=== PATIENT | male | born 1930 | race Asian ===

== ENCOUNTER 2016-11-06 09:26 | Emergency (ER) | payer OTHER, MEDICARE ==
[~2016-11-06] VITALS: Ht 162.6 cm; Wt 71.9 kg
[~2016-11-06 09:26] MED LIST: ALBINSX INH; ALBU1AER9 INH; ASPEC81 PO; CHOL100027 PO; CYAN10004 PO; DIGO0.122 PO; DOCU1CAP60 PO; ISOS60TA25 PO; LEVO100T7 PO; MCRK20 PO; NTRSL3 UT; NVLGI PO; NVLGI SC; OXGN; POLY335025 PO; PRLSR20 PO; ROSU40TA PO; TERA1CAP63 PO; TRMCR130WC TOP; WARF-246 PO; WARF5TAB90 PO
[2016-11-06 09:31] VITALS: TEMP 36.5; Ht 162.6 cm; Wt 71.9 kg
[2016-11-06] MEDS ORDERED: OXYMETAZOLINE HCL 0.05% NA SPR 15 ML BTL STA (09:48)
[2016-11-06] MEDS ORDERED: OXYMETAZOLINE HCL 0.05% NA SPR 15 ML BTL ONE (09:50)
--- NOTE | 2016-11-06 09:57 | EMERGENCY ROOM VISIT NOTE ---
History Report prepared by Shelton: Leanna Watkins Under the Supervision of: Dr. Ray Serrato M.D. 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 He is bleeding from the right nares. He denies any trauma or injury to the nose. He states that the bleeding began suddenly this morning. The patient does use 2L of [place] O2 each night, and he does not use a moisturizer. He does take Coumadin and his INR was 2.6 yesterday. The patient denies any recent cold symptoms and any seasonal allergies. He has not been blowing his nose more than usual. Daughter states that he has been sounding "more nasally" over the past two days. The patient states that he feels like there is water in his left ear. He has had nosebleeds in the past and has been cauterized before. 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 Source of History: patient, family (daughter) Onset: 1 hour ELECTROMECHANICAL ASSEMBLY TECHNICIAN Position: nose Quality: other (bleeding) Timing: other (episode) Note: Pt notes left ear congestion. Review of Systems All systems have been listed, reviewed, and are negative other than those previously mentioned. Please see Additional Medical History Sheet. 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 Family History Diabetes mellitus Heart disease Hypertension Social History Smoking Status: Never Smoker Alcohol Use: none Drug Use: none Marital Status: Housing Status: lives with family Occupation Status: retired Current/Historical Medications Scheduled Aspirin (Aspirin Ec), 81 MG PO DAILY Atorvastatin (Lipitor), 40 MG PO DAILY Carvedilol (Coreg), 12.5 MG PO BID Cholecalciferol (Vitamin D), 1,000 UNITS PO DAILY Cyanocobalamin (Vitamin B-12), 1,000 MCG PO DAILY Digoxin (Digoxin), 0.125 MG PO 5XWK Gabapentin (Neurontin), 100 MG PO TID Glimepiride (Amaryl), 2 MG PO DAILY Home O2 Therapy (Oxygen), 2 LITERS NA PRN Hydrocortisone Valerate (Westcort 0.2% Oint), 1 APPLN TOP BID Insulin Aspart (Novolog), 1 DOSE SC SS Insulin Human Regular (Novolin R), 4 UNITS SC QAM Insulin Human Regular (Novolin R), 10 UNITS SC LUNCH Insulin Human Regular (Novolin R), 10 UNITS SC DINNER Levothyroxine Sodium (Levothyroxine Sodium), 1 TAB PO DAILY Lisinopril (Prinivil), 10 MG PO DAILY Multivitamin (Multivitamin), 1 TAB PO DAILY Nitroglycerin (Nitrostat), 0.4 MG UT PRN Omeprazole (Prilosec), 20 MG PO BID Pentoxifylline (Trental), 400 MG PO TID Triamcinolone Acet (Triamcinolone Acetonide), 1 APPLN TOP BID Warfarin Sod (Jantoven), 5 MG PO UD Scheduled PRN Albuterol Sulf (Albuterol Sulfate), 1 VIAL INH Q4 PRN for Wheezing Albuterol Sulfate (Proair Respiclick), 2 PUFFS INH QID PRN for SOB/Wheezing Docusate Sodium (Colace), 1 CAP PO DAILY PRN for Constipation Ipratropium [place] (Atrovent 0.02% Soln), 2.5 ML INH Q4 PRN for SOB/Wheezing Polyethylene Glycol 3350 (Miralax), 17 GM PO DAILY PRN for Constipation Allergies Coded Allergies: Amiodarone (Verified Allergy, Unknown, cough, 02/17/14) Penicillins (Verified Allergy, Unknown, ITCHING, 02/17/14) Quinolones (Verified Allergy, Unknown, 02/17/14) Sulfa Antibiotics (Verified Allergy, Unknown, ., 02/17/14) Tetracycline (Verified Allergy, Unknown, 02/17/14) Physical Exam Vital Signs Date Time Temp Pulse Resp B/P (MAP) Pulse Ox O2 Delivery O2 Flow Rate FiO2 11/06/16 15:02 68 20 177/95 99 11/06/16 11:53 62 20 166/84 95 Room Air 11/06/16 10:18 67 18 177/92 97 Room Air 11/06/16 09:31 36.5 78 17 158/81 98 Room Air Physical Exam GENERAL: Patient awake, alert, oriented x 3. Patient follows commands. Patient does not appear toxic. Patient is adequately hydrated and well- nourished. SKIN: No erythema, pallor, cyanosis or rash HEENT: Normal head, pupils equal, reactive to light and accommodation. Ears normal. Nose: Left nares normal. Right nares: I identified the site of the bleed over Kiesselbach's plexus. Oral cavity and posterior pharynx appear normal. There is a small amount of blood in the posterior pharynx. Neck: Without adenopathy, no neck vein distention. LUNGS: Clear to auscultation. No wheezes, no rales, no rhonchi. HEART: No murmurs. No gallops. No rubs EXTREMITIES: No signs of trauma. No pedal or pretibial edema. No calf or thigh tenderness. NEUROLOGIC: Cranial nerves II-XII within normal limits. No gross motor sensory function deficits. Medical Decision & Procedures Laboratory Results 11/06/16 10:40 11/06/16 10:40 Test 11/06/16 10:40 Red Blood Count 4.12 M/uL (4.7-6.1) Mean Corpuscular Volume 92.2 fL (80-100) Mean Corpuscular Hemoglobin 31.3 pg (25-34) Mean Corpuscular Hemoglobin Concent 33.9 g/dl (32-36) RDW Standard Deviation 44.7 fL (36.4-46.3) RDW Coefficient of Variation 13.4 % (11.5-14.5) Mean Platelet Volume 10.2 fL (7.4-10.4) Prothrombin Time 24.7 SECONDS (9.0-12.0) Prothromb Time International Ratio 2.2 (0.9-1.1) Anion Gap 7.0 mmol/L (3-11) Est Creatinine Clear Calc Drug Dose 43.8 ml/min Estimated GFR () 70.1 Estimated GFR (Non- 60.5 BUN/Creatinine Ratio 18.1 (10-20) Calcium Level 9.2 mg/dl (8.5-10.1) Medications Administered Medications (Trade) Dose Ordered Sig/Louise Route Start Time Stop Time Status Last Admin Dose Admin Oxymetazoline HCl (Afrin 0.05% Nasal [place]) 2 sprays NOW STAT NA 11/06/16 09:48 11/06/16 09:49 DC 11/06/16 09:57 2 SPRAYS Silver Nitrate/ Potassium Nitrate (Silver Nitrate Applicators) 5 pkt STK-MED ONCE .ROUTE 11/06/16 11:14 11/06/16 11:15 DC 11/06/16 11:14 1 PKT Procedure Anterior Nasal Packing Indication: epistaxis Verbal consent obtained. Risks and benefits were explained with the usual customary discussion. A time out was taken. Clots were removed with suction. The right naris was prepped with Afrin and lidocaine. A 5.5-cm nasal balloon was placed in a standard fashion. The patient tolerated this well. Hemostasis was achieved. No complications. ED Course 0936: Past medical records reviewed. The patient was evaluated in room B11B. A complete history and physical examination was performed. 0948: Afrin 2 sprays NA 1109: I reassessed the patient and cauterized a small area in the right nares. 1114: Silver nitrate/potassium nitrate 1236: The patient got up to go to the bathroom and started bleeding again. I reassessed him and cauterized an area adjacent to the previous area. 1319: The patient continued to have bleeding from the right nares. I performed an anterior nasal packing procedure at this time. Please see the procedure note for further details. 1427: I reassessed the patient at this time. He is feeling better and resting comfortably. He has had no further bleeding. I discussed the results and treatment plan with the patient. I answered all pertaining questions that he had. He expressed understanding and verbalized agreement. The patient will be discharged home. Medical Decision Differential diagnoses includes epistaxis, nasal polyp, anemia, coagulopathy. The patient is here with epistaxis from the right nares. Exam reveals a bleeding spot on Kiesselbach's plexus. Despite 2 separate attempts at cauterization the patient continued to have small amounts of bleeding. Therefore, a 5.5 Rhino Rocket was lubricated and then inserted into his right nares. Patient tolerated the procedure well. It was inflated with 5 mL of air. It was secured in place. Patient was encouraged to recheck here in 3 days for removal. The patient was observed for approximately 20 minutes after insertion and there was no further bleeding. Medication Reconciliation: I attest that I have personally reviewed the patient' s current medication list. Blood Pressure Screening: Patient was found to have an elevated blood pressure and was referred to their primary doctor for recheck and further treatment. Impression Primary Impression: Epistaxis Scribe Attestation The scribe's documentation has been prepared under my direction and personally reviewed by me in its entirety. I confirm that the note above accurately reflects all work, treatment, procedures, and medical decision making performed by me. Departure Information Dispostion Home / Self-Care Referrals No Doctor, Assigned (PCP) Forms HOME CARE DOCUMENTATION FORM, IMPORTANT VISIT INFORMATION, WORK / SCHOOL INSTRUCTIONS Patient Instructions My [facility] Additional Instructions Leave the packing in her nose for 3 days. Do not try to remove it. Return here for removal in 3 days. Return here sooner if you have any bleeding around the packing or down the back of your throat. Continue all of your current medications as prescribed. Follow up with your family physician regarding your blood pressure.
[2016-11-06] MEDS ORDERED: PENT400T2 PO (10:41)
[2016-11-06] MEDS ORDERED: WARF5TAB7 PO (10:41)
[2016-11-06] MEDS ORDERED: OXGN (10:41)
[2016-11-06] MEDS ORDERED: ALBINS INH (10:41)
[2016-11-06] MEDS ORDERED: ATOR-24 PO (10:41)
[2016-11-06] MEDS ORDERED: POLY335019 PO (10:41)
[2016-11-06] MEDS ORDERED: LEVO100T7 PO (10:41)
[2016-11-06] MEDS ORDERED: MULT-506 PO (10:41)
[2016-11-06] MEDS ORDERED: ALBU18002 INH (10:41)
[2016-11-06] MEDS ORDERED: CARV25TA2 PO (10:41)
[2016-11-06] MEDS ORDERED: NVLRPUC SC ×3 (10:41)
[2016-11-06] MEDS ORDERED: CYAN10005 PO (10:41)
[2016-11-06] MEDS ORDERED: NVLG SC (10:41)
[2016-11-06] MEDS ORDERED: CHOL100010 PO (10:41)
[2016-11-06] MEDS ORDERED: DOCU-94 PO (10:41)
[2016-11-06] MEDS ORDERED: NTRGSL/4 UT (10:41)
[2016-11-06] MEDS ORDERED: LNX125 PO (10:41)
[2016-11-06] MEDS ORDERED: LISI10TA PO (10:41)
[2016-11-06] MEDS ORDERED: PRLSR20 PO (10:41)
[2016-11-06] MEDS ORDERED: GLIM2TAB PO (10:41)
[2016-11-06] MEDS ORDERED: WSTO TOP (10:41)
[2016-11-06] MEDS ORDERED: GABA-112 PO (10:41)
[2016-11-06] MEDS ORDERED: ATRINSX INH (10:41)
[2016-11-06] MEDS ORDERED: ASPI81TA28 PO (10:41)
[2016-11-06] MEDS ORDERED: TRIA0.5C4 TOP (10:41)
[2016-11-06 10:58] LABS: INR 2.2 (0.9-1.1); PROTHROMBIN TIME (PATIENT) 24.7 SECONDS (9.0-12.0)
[2016-11-06 11:10] LABS: MEAN CELL VOLUME 92.2 fL (80-100); MEAN CORPUSCULAR HEMOGLOBIN 31.3 pg (25-34); MEAN CORPUSCULAR HGB CONC 33.9 g/dl (32-36); MEAN PLATELET VOLUME 10.2 fL (7.4-10.4); PLATELET COUNT 100 K/uL (130-400); RED BLOOD COUNT 4.12 M/uL (4.7-6.1); WHITE BLOOD COUNT 5.37 K/uL (4.8-10.8)
[2016-11-06] MEDS ORDERED: SILVER NITR/POTASSIUM NITRATE 10 APPLICATOR PACK ONE (11:14)
[2016-11-06 11:19] LABS: BUN/CREATININE RATIO 18.1 (10-20); CALCIUM 9.2 mg/dl (8.5-10.1); CREATININE 1.1 mg/dl (0.60-1.40); POTASSIUM 4.1 mmol/L (3.5-5.1)
[2016-11-06 15:02] VITALS: BP 177/95; PULSE 68; O2SAT 99
[2016-12-09] MEDS ORDERED: PSYL0.524 PO (15:28)
[2016-12-09] MEDS ORDERED: PENT400T2 PO (15:30)
[2016-12-09] MEDS ORDERED: GABA-112 PO (15:30)
[2016-12-11] MEDS ORDERED: OXYC-57 PO (12:01)
== END 2016-11-06 15:08 | disposition home or self-care (01) ==
LOC: C.EDB 09:27
DX: R04.0 Epistaxis (principal); Z79.01 Long term (current) use of anticoagulants; Z99.81 Dependence on supplemental oxygen; I35.0 Nonrheumatic aortic (valve) stenosis; I48.91 Unspecified atrial fibrillation; I10 Essential (primary) hypertension; E11.43 Type 2 diabetes mellitus with diabetic autonomic (poly)neuropathy; K21.9 Gastro-esophageal reflux disease without esophagitis; E78.5 Hyperlipidemia, unspecified; E03.9 Hypothyroidism, unspecified; Z95.1 Presence of aortocoronary bypass graft; Z83.3 Family history of diabetes mellitus; Z82.49 Family history of ischemic heart disease and other diseases of the circulatory system; Z79.82 Long term (current) use of aspirin; Z79.899 Other long term (current) drug therapy; Z79.4 Long term (current) use of insulin

== ENCOUNTER 2016-11-08 16:05 | Emergency (ER) | payer OTHER, MEDICARE ==
[~2016-11-08] VITALS: Ht 162.6 cm; Wt 71.4 kg
[~2016-11-08 16:05] MED LIST changes: +ALBINS INH; -ALBINSX INH; +ALBU18002 INH; -ALBU1AER9 INH; -ASPEC81 PO; +ASPI81TA28 PO; +ATOR-24 PO; +ATRINSX INH; +CARV25TA2 PO; +CHOL100010 PO; -CHOL100027 PO; -CYAN10004 PO; +CYAN10005 PO; -DIGO0.122 PO; +DOCU-94 PO; -DOCU1CAP60 PO; +GABA-112 PO; +GLIM2TAB PO; -ISOS60TA25 PO; +LISI10TA PO; +LNX125 PO; -MCRK20 PO; +MULT-506 PO; +NTRGSL/4 UT; -NTRSL3 UT; +NVLG SC; -NVLGI PO; -NVLGI SC; +NVLRPUC SC; +PENT400T2 PO; +POLY335019 PO; -POLY335025 PO; -ROSU40TA PO; -TERA1CAP63 PO; +TRIA0.5C4 TOP; -TRMCR130WC TOP; -WARF-246 PO; +WARF5TAB7 PO; -WARF5TAB90 PO; +WSTO TOP
[2016-11-08 16:12] VITALS: BP 92/58; PULSE 72; TEMP 36.6; O2SAT 99; Ht 162.6 cm; Wt 71.4 kg
--- NOTE | 2016-11-08 17:42 | EMERGENCY ROOM VISIT NOTE ---
History Report prepared by Shelton: Phoebe Hooper Under the Supervision of: Dr. Ray Serrato M.D. First contact with patient: 16:23 Chief Complaint: NOSE BLEED (MINOR) Stated Complaint: NOSE BLEED History of Present Illness The patient is an 85 year old male who presents to the Emergency Room with complaints of an episode of epistaxis starting PETROLOGIST. The patient was seen in the ED 2 days ago for nosebleed. He had a 5.5 rhino rocket placed at that time. He had some pink dripping from his nose today which concerned him. He did not move the rhino rocket. He is on Coumadin for A fib and aortic valve stenosis. He has recently been feeling more tired. He was feeling well 2 days ago during his first visit, but since then he has been tired and having some leg pain. He has some head discomfort since the rhino rocket was placed. Source of History: patient Onset: PETROLOGIST Position: nose Quality: other (epistaxis) Timing: other (episodic) Associated Symptoms: + fatigue Note: Pt reports pink mucous drip, leg pain. Review of Systems All systems have been listed, reviewed, and are negative other than those previously mentioned. Please see Additional Medical History Sheet. 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 Family History Diabetes mellitus Heart disease Hypertension Social History Smoking Status: Never Smoker Alcohol Use: none Drug Use: none Marital Status: Housing Status: lives with family Occupation Status: retired Current/Historical Medications Scheduled Aspirin (Aspirin Ec), 81 MG PO DAILY Atorvastatin (Lipitor), 40 MG PO DAILY Carvedilol (Coreg), 12.5 MG PO BID Cholecalciferol (Vitamin D), 1,000 UNITS PO DAILY Cyanocobalamin (Vitamin B-12), 1,000 MCG PO DAILY Digoxin (Digoxin), 0.125 MG PO 5XWK Gabapentin (Neurontin), 100 MG PO TID Glimepiride (Amaryl), 2 MG PO DAILY Home O2 Therapy (Oxygen), 2 LITERS NA PRN Hydrocortisone Valerate (Westcort 0.2% Oint), 1 APPLN TOP BID Insulin Aspart (Novolog), 1 DOSE SC SS Insulin Human Regular (Novolin R), 4 UNITS SC QAM Insulin Human Regular (Novolin R), 10 UNITS SC LUNCH Insulin Human Regular (Novolin R), 10 UNITS SC DINNER Levothyroxine Sodium (Levothyroxine Sodium), 1 TAB PO DAILY Lisinopril (Prinivil), 10 MG PO DAILY Multivitamin (Multivitamin), 1 TAB PO DAILY Nitroglycerin (Nitrostat), 0.4 MG UT PRN Omeprazole (Prilosec), 20 MG PO BID Pentoxifylline (Trental), 400 MG PO TID Triamcinolone Acet (Triamcinolone Acetonide), 1 APPLN TOP BID Warfarin Sod (Jantoven), 5 MG PO UD Scheduled PRN Albuterol Sulf (Albuterol Sulfate), 1 VIAL INH Q4 PRN for Wheezing Albuterol Sulfate (Proair Respiclick), 2 PUFFS INH QID PRN for SOB/Wheezing Docusate Sodium (Colace), 1 CAP PO DAILY PRN for Constipation Ipratropium [place] (Atrovent 0.02% Soln), 2.5 ML INH Q4 PRN for SOB/Wheezing Polyethylene Glycol 3350 (Miralax), 17 GM PO DAILY PRN for Constipation Allergies Coded Allergies: Amiodarone (Verified Allergy, Unknown, cough, 02/17/14) Penicillins (Verified Allergy, Unknown, ITCHING, 02/17/14) Quinolones (Verified Allergy, Unknown, 02/17/14) Sulfa Antibiotics (Verified Allergy, Unknown, ., 02/17/14) Tetracycline (Verified Allergy, Unknown, 02/17/14) Physical Exam Vital Signs Date Time Temp Pulse Resp B/P (MAP) Pulse Ox O2 Delivery O2 Flow Rate FiO2 11/08/16 16:12 36.6 72 18 92/58 99 Room Air Physical Exam GENERAL: Patient awake, alert, oriented x 3. Patient follows commands. Patient does not appear toxic. Patient is adequately hydrated and well- nourished. SKIN: No erythema, pallor, cyanosis or rash HEENT: Normal head, pupils equal, reactive to light and accommodation. Ears normal. Patient has rhino rocket in the right nares, small amount of dry blood at the entrance to the right nares, no active bleeding, no blood in the left nares, no blood in the posterior oropharynx. Oral cavity and posterior pharynx appear normal. Neck: Without adenopathy, no neck vein distention. Medical Decision & Procedures Laboratory Results 11/08/16 16:50 Test 11/08/16 16:50 Red Blood Count 4.40 M/uL (4.7-6.1) Mean Corpuscular Volume 93.0 fL (80-100) Mean Corpuscular Hemoglobin 30.7 pg (25-34) Mean Corpuscular Hemoglobin Concent 33.0 g/dl (32-36) RDW Standard Deviation 46.2 fL (36.4-46.3) RDW Coefficient of Variation 13.5 % (11.5-14.5) Mean Platelet Volume 11.0 fL (7.4-10.4) Prothrombin Time 28.4 SECONDS (9.0-12.0) Prothromb Time International Ratio 2.6 (0.9-1.1) Laboratory results as stated above per my review. ED Course 1623: Past medical records reviewed. The patient was evaluated in room D4B. A complete history and physical examination was performed. 1804: Upon reevaluation, the patient appeared to have improvement of his symptoms. I discussed today's findings with him. He verbalized agreement of the treatment plan. We have arranged follow up on November 10 in the morning. He was discharged home. Medical Decision Nurses notes reviewed. Medical history sheet reviewed. Differential diagnosis includes but is not limited to: epistaxis, coagulopathy. Medication Reconciliation: I attest that I have personally reviewed the patient' s current medication list. Blood pressure Screening: Patient was found to have normal blood pressure on screening and does not require follow up. Patient is here complaining of some blood tinged mucus draining from his nose. On examination there is no active bleeding. There is no blood in the posterior pharynx and there is no blood from either nares. I believe the discharge is mucus only. INR is currently 2.6. Hemoglobin is 13.5. We will take him off of warfarin for 2 days. He will return to have the tampon removed on 11/10. I explained the risks of taking him off Coumadin. Impression Primary Impression: Anterior epistaxis Scribe Attestation The scribe's documentation has been prepared under my direction and personally reviewed by me in its entirety. I confirm that the note above accurately reflects all work, treatment, procedures, and medical decision making performed by me. Departure Information Dispostion Home / Self-Care Referrals Yusra Melissa M.D. (PCP) Patient Instructions My [facility] Additional Instructions Do not take Coumadin tonight or tomorrow night. Return here November 10.
[2016-11-08 17:44] LABS: HEMATOCRIT 40.9 % (42-52); MEAN CORPUSCULAR HEMOGLOBIN 30.7 pg (25-34); PLATELET COUNT 109 K/uL (130-400)
[2016-11-08 17:51] LABS: INR 2.6 (0.9-1.1); PROTHROMBIN TIME (PATIENT) 28.4 SECONDS (9.0-12.0)
[2016-12-09] MEDS ORDERED: PSYL0.524 PO (15:28)
[2016-12-09] MEDS ORDERED: GABA-112 PO (15:30)
[2016-12-09] MEDS ORDERED: PENT400T2 PO (15:30)
[2016-12-11] MEDS ORDERED: OXYC-57 PO (12:01)
== END 2016-11-08 18:22 | disposition home or self-care (01) ==
LOC: C.EDB 16:06 → C.EDD 18:22
DX: R04.0 Epistaxis (principal); I48.91 Unspecified atrial fibrillation; E11.42 Type 2 diabetes mellitus with diabetic polyneuropathy; E78.5 Hyperlipidemia, unspecified; E03.9 Hypothyroidism, unspecified; I10 Essential (primary) hypertension; K21.9 Gastro-esophageal reflux disease without esophagitis; I35.0 Nonrheumatic aortic (valve) stenosis; Z79.4 Long term (current) use of insulin; Z79.82 Long term (current) use of aspirin; Z79.01 Long term (current) use of anticoagulants; Z79.899 Other long term (current) drug therapy; Z88.0 Allergy status to penicillin; Z88.2 Allergy status to sulfonamides; Z88.8 Allergy status to other drugs, medicaments and biological substances; Z83.3 Family history of diabetes mellitus; Z82.49 Family history of ischemic heart disease and other diseases of the circulatory system

== ENCOUNTER 2016-11-10 06:35 | Emergency (ER) | payer OTHER, MEDICARE ==
[~2016-11-10] VITALS: Ht 162.6 cm; Wt 71.1 kg
[2016-11-10 06:42] VITALS: Ht 162.6 cm; Wt 71.1 kg
--- NOTE | 2016-11-10 07:40 | EMERGENCY ROOM VISIT NOTE ---
History Report prepared by [place]: Padmini Keller Under the Supervision of: Dr. Ray Serrato M.D. First contact with patient: 06:58 Chief Complaint: NOSE BLEED (MINOR) Stated Complaint: TOLD TO RETURN BY DR BRANDO CHAUDHARI History of Present Illness The patient is an 85 year old male who presents to the Emergency Room for a rhino rocket removal. The patient experienced an episode of epistaxis 4 days ago and had a rhino rocket placed in his right nares in the ED at that time. He was evaluated in the ED again 2 days ago for blood-tinged drainage from his right nares. He states that he is still experiencing some blood-tinged drainage. The patient's Coumadin was stopped 2 days ago and he states that he has not taken it since then. Source of History: patient Onset: 4 days ago Position: nose (right nares) Quality: other (rhino rocket removal) Timing: constant Note: blood-tinged drainage Review of Systems All systems have been listed, reviewed, and are negative other than those previously mentioned. Please see Additional Medical History Sheet. 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 Family History Diabetes mellitus Heart disease Hypertension Social History Smoking Status: Never Smoker Alcohol Use: none Drug Use: none Marital Status: Housing Status: lives with family Occupation Status: retired Current/Historical Medications Scheduled Aspirin (Aspirin Ec), 81 MG PO DAILY Atorvastatin (Lipitor), 40 MG PO DAILY Carvedilol (Coreg), 12.5 MG PO BID Cholecalciferol (Vitamin D), 1,000 UNITS PO DAILY Cyanocobalamin (Vitamin B-12), 1,000 MCG PO DAILY Digoxin (Digoxin), 0.125 MG PO 5XWK Gabapentin (Neurontin), 100 MG PO TID Glimepiride (Amaryl), 2 MG PO DAILY Home O2 Therapy (Oxygen), 2 LITERS NA PRN Hydrocortisone Valerate (Westcort 0.2% Oint), 1 APPLN TOP BID Insulin Aspart (Novolog), 1 DOSE SC SS Insulin Human Regular (Novolin R), 4 UNITS SC QAM Insulin Human Regular (Novolin R), 10 UNITS SC LUNCH Insulin Human Regular (Novolin R), 10 UNITS SC DINNER Levothyroxine Sodium (Levothyroxine Sodium), 1 TAB PO DAILY Lisinopril (Prinivil), 10 MG PO DAILY Multivitamin (Multivitamin), 1 TAB PO DAILY Nitroglycerin (Nitrostat), 0.4 MG UT PRN Omeprazole (Prilosec), 20 MG PO BID Pentoxifylline (Trental), 400 MG PO TID Triamcinolone Acet (Triamcinolone Acetonide), 1 APPLN TOP BID Warfarin Sod (Jantoven), 5 MG PO UD Scheduled PRN Albuterol Sulf (Albuterol Sulfate), 1 VIAL INH Q4 PRN for Wheezing Albuterol Sulfate (Proair Respiclick), 2 PUFFS INH QID PRN for SOB/Wheezing Docusate Sodium (Colace), 1 CAP PO DAILY PRN for Constipation Ipratropium [place] (Atrovent 0.02% Soln), 2.5 ML INH Q4 PRN for SOB/Wheezing Polyethylene Glycol 3350 (Miralax), 17 GM PO DAILY PRN for Constipation Allergies Coded Allergies: Amiodarone (Verified Allergy, Unknown, cough, 11/10/16) Penicillins (Verified Allergy, Unknown, ITCHING, 11/10/16) Quinolones (Verified Allergy, Unknown, 11/10/16) Sulfa Antibiotics (Verified Allergy, Unknown, ., 11/10/16) Tetracycline (Verified Allergy, Unknown, 11/10/16) Physical Exam Vital Signs Date Time Temp Pulse Resp B/P (MAP) Pulse Ox O2 Delivery O2 Flow Rate FiO2 11/10/16 13:30 36.4 66 20 108/70 (83) 98 Room Air 11/10/16 13:30 36.4 68 20 119/66 97 Room Air 11/10/16 13:21 36.2 68 20 115/68 (88) 97 Room Air 11/10/16 13:14 123/66 11/10/16 13:13 70 23 94 11/10/16 13:13 70 23 11/10/16 13:08 70 17 96 11/10/16 13:08 70 17 11/10/16 13:07 134/74 11/10/16 13:03 69 20 97 11/10/16 13:03 36.2 70 18 134/74 98 Room Air 11/10/16 13:03 69 20 11/10/16 10:02 60 16 117/59 98 11/10/16 08:45 71 17 128/67 97 11/10/16 06:42 36.5 81 18 107/66 98 Room Air Physical Exam GENERAL: Patient awake, alert, oriented x 3. Patient follows commands. Patient does not appear toxic. Patient is adequately hydrated and well- nourished. SKIN: No erythema, pallor, cyanosis or rash HEENT: Normal head, pupils equal, reactive to light and accommodation. Ears normal. Inflated rhino rocket in right nares without bleeding anteriorly or in the posterior oropharynx. Oral cavity and posterior pharynx appear normal. Neck : Without adenopathy, no neck vein distention. NEUROLOGIC: Cranial nerves II-XII within normal limits. No gross motor sensory function deficits. Medical Decision & Procedures Laboratory Results Test 11/10/16 13:19 Bedside Glucose 164 mg/dl (70-99) Medications Administered Medications (Trade) Dose Ordered Sig/Louise Route Start Time Stop Time Status Last Admin Dose Admin Oxymetazoline HCl (Afrin 0.05% Nasal [place]) 75 sprays STK-MED ONCE .ROUTE 11/10/16 07:44 11/10/16 07:45 DC 11/10/16 07:44 75 SPRAYS Gelatin (Surgifoam Sponge 100 (LARGE)) 1 ea STK-MED ONCE .ROUTE 11/10/16 10:51 11/10/16 10:52 DC 11/10/16 10:51 1 EA Tetracaine HCl (Tetracaine 4% Soln) 10 ml ONE ONCE TOP 11/10/16 12:15 11/10/16 12:16 DC 11/10/16 12:52 5 ML Miscellaneous (Surgicel Fibrillar Hemostat 1 X 2in) 1 ea ONE ONCE TOP 11/10/16 12:42 11/10/16 12:43 DC 11/10/16 12:42 1 EA Gelatin (Surgifoam Sponge 100 (LARGE)) 1 ea ONE ONCE TOP 11/10/16 12:44 11/10/16 12:45 DC 11/10/16 12:44 1 EA Procedure Anterior Nasal Packing Removal Packing rinsed with a mixture of saline and peroxide then deflated. The packing was gently removed. Re-examination following removal revealed erythema and slight irritation, but no active bleeding. ED Course 0659: Past medical records reviewed. The patient was evaluated in room A2. A complete history and physical examination was performed. The patient's anterior nasal packing was removed at this time. Please refer to the procedure note above for further details. 0729: Upon reevaluation, the patient appeared to have improvement of his symptoms. He is not experiencing any bleeding in his right nares on re- examination. I discussed today's findings with him. He verbalized agreement of the treatment plan. He was discharged home. 0746: The patient's nurse informed me that as the patient was being discharged, he began to experience epistaxis again. 0750: I reassessed the patient. He is not experiencing any active bleeding at this time. 0821: The patient experienced some bleeding after ambulating to the bathroom. 0845: I reassessed the patient and used HemaDerm topical hemostat. 0930: I reevaluated the patient. He is not currently bleeding. 1006: The patient is still not experiencing any bleeding. I am going to have the nurse ambulate the patient to see if he experiences any bleeding with that. 1014: The nurse informed me that the patient ambulated around the nursing station without any bleeding, but upon coming out of the bathroom he complained of some blood dripping from his right nares. 1029: Discussed the patient's case with Dr. Torres - ENT. He is going to come in to evaluate the patient. 1157: I went to reassess the patient, but the nurses informed me that Dr. Torres has evaluated the patient and taken him to the operating room. Medical Decision Nurses notes reviewed. Medical history sheet reviewed. Differential diagnosis includes but is not limited to: epistaxis. The patient was seen approximately 4 days ago with epistaxis. Cautery was unsuccessful and an Rhino rocket was inserted. He was checked yesterday for some pink tinged drainage. Coumadin was stopped. Today he returned and the tampon was gently removed. Bleeding was intermittent since. Despite multiple exams I could not identify the bleeding source. Afrin was used without resolution of the bleeding. HemaDerm was also used without resolution. I discussed care with Dr. Torres who evaluated the patient in the ED and took him to the OR. Medication Reconciliation: I attest that I have personally reviewed the patient' s current medication list. Blood pressure Screening: Patient was found to have normal blood pressure on screening and does not require follow up. Consults Time Called: 1020 Consulting Physician: Dr. Brian HADDAD Returned Call: 1029 Discussed the patient's case with Dr. Brian HADDAD. He is going to come in to evaluate the patient. Impression Primary Impression: Epistaxis Scribe Attestation The scribe's documentation has been prepared under my direction and personally reviewed by me in its entirety. I confirm that the note above accurately reflects all work, treatment, procedures, and medical decision making performed by me. Departure Information Dispostion Other (Being Evaluated By Dr. Brian HADDAD) Referrals Yusra Melissa M.D. (PCP) Patient Instructions My [facility]
[2016-11-10] MEDS ORDERED: OXYMETAZOLINE HCL 0.05% NA SPR 15 ML BTL ONE (07:44)
[2016-11-10 10:02] VITALS: O2SAT 98
[2016-11-10] MEDS ORDERED: GELATIN SPONGE SZ 100 ONE (10:51)
[2016-11-10] MEDS ORDERED: GELATIN SPONGE 12-7MM ONE (11:06)
[2016-11-10] MEDS ORDERED: FENTANYL CITRATE INJ 50 MCG/1 ML 2 ML VIAL IV PRN (11:15)
[2016-11-10] MEDS ORDERED: ONDANSETRON INJ 2 MG/ML 2 ML VIAL IV PRN (11:15)
[2016-11-10] MEDS ORDERED: ATROPINE SULFATE 0.1 MG/ML 5ML SYR IV PRN (11:15)
--- NOTE | 2016-11-10 11:39 | History and Physical ---
History & Physical Date Nov 10, 2016. 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 Additional History Hepatic Disease: Yes Endocrine Disorder: Yes Kidney Disease: No Hypertension: Yes Heart Disease: Yes Bleeding Tendencies: Yes Infectious Diseases: No Allergies Coded Allergies: Amiodarone (Verified Allergy, Unknown, cough, 11/10/16) Penicillins (Verified Allergy, Unknown, ITCHING, 11/10/16) Quinolones (Verified Allergy, Unknown, 11/10/16) Sulfa Antibiotics (Verified Allergy, Unknown, ., 11/10/16) Tetracycline (Verified Allergy, Unknown, 11/10/16) Home Medications Scheduled Aspirin (Aspirin Ec), 81 MG PO DAILY Atorvastatin (Lipitor), 40 MG PO DAILY Carvedilol (Coreg), 12.5 MG PO BID Cholecalciferol (Vitamin D), 1,000 UNITS PO DAILY Cyanocobalamin (Vitamin B-12), 1,000 MCG PO DAILY Digoxin (Digoxin), 0.125 MG PO 5XWK Gabapentin (Neurontin), 100 MG PO TID Glimepiride (Amaryl), 2 MG PO DAILY Home O2 Therapy (Oxygen), 2 LITERS NA PRN Hydrocortisone Valerate (Westcort 0.2% Oint), 1 APPLN TOP BID Insulin Aspart (Novolog), 1 DOSE SC SS Insulin Human Regular (Novolin R), 4 UNITS SC QAM Insulin Human Regular (Novolin R), 10 UNITS SC LUNCH Insulin Human Regular (Novolin R), 10 UNITS SC DINNER Levothyroxine Sodium (Levothyroxine Sodium), 1 TAB PO DAILY Lisinopril (Prinivil), 10 MG PO DAILY Multivitamin (Multivitamin), 1 TAB PO DAILY Nitroglycerin (Nitrostat), 0.4 MG UT PRN Omeprazole (Prilosec), 20 MG PO BID Pentoxifylline (Trental), 400 MG PO TID Triamcinolone Acet (Triamcinolone Acetonide), 1 APPLN TOP BID Warfarin Sod (Jantoven), 5 MG PO UD Scheduled PRN Albuterol Sulf (Albuterol Sulfate), 1 VIAL INH Q4 PRN for Wheezing Albuterol Sulfate (Proair Respiclick), 2 PUFFS INH QID PRN for SOB/Wheezing Docusate Sodium (Colace), 1 CAP PO DAILY PRN for Constipation Ipratropium [place] (Atrovent 0.02% Soln), 2.5 ML INH Q4 PRN for SOB/Wheezing Polyethylene Glycol 3350 (Miralax), 17 GM PO DAILY PRN for Constipation Physical Examination Skin: warm/dry Eyes: normal inspection ENT: + pertinent finding (blood) Head: normocephalic Neck: supple Respiratory/Chest: lungs clear Cardiovascular: regular rate, rhythm, no edema, no murmur Abdomen / GI: normal bowel sounds, non tender Back: normal inspection Extremities: normal inspection Neurologic/Psych: no motor/sensory deficits Diagnosis posterior epistaxis ASA Classification: ASA Class II Plan of Treatment posterior epistaxis
[2016-11-10] MEDS ORDERED: MIDAZOLAM HCL 1 MG/ML 2ML VIAL ONE (11:59)
[2016-11-10] MEDS ORDERED: LIDO 2%/EPINEPHRINE 1:100000 20 ML VIAL INFIL ONE (12:08)
[2016-11-10] MEDS ORDERED: TETRACAINE 4% SOLN TOP ONE (12:15)
[2016-11-10] MEDS ORDERED: SURGICEL FIBRILLAR HEMOSTAT 1 X 2IN TOP ONE (12:42)
[2016-11-10] MEDS ORDERED: GELATIN SPONGE SZ 100 TOP ONE (12:44)
--- NOTE | 2016-11-10 13:18 | [facility] Operative Report ---
Operative Report Operative Date Nov 10, 2016. Pre-Operative Diagnosis Posterior epistaxis Post-Operative Diagnosis same Procedure(s) Performed endoscopic cautery and posterior packing right Surgeon Dr. Torres Cold Reduction Roller Surgeon(s) none Estimated Blood Loss 5 ml Findings septal dev. to right with erosion Specimens none Anesthesia MAC Complication(s) None Disposition Recovery Room / PACU Indications epistaxis x3 to ER Description of Procedure I used topical tetracaine. Dr. Morrow sedated him. I use suction cautery to control bleeding right mid and posterior septum and right inferior turbinate, then packed with gelfoam and fibrillar with good control. I attest to the content of the Intraoperative Record and any orders documented therein. Any exceptions are noted below.
--- NOTE | 2016-11-10 13:22 | Discharge Instructions ---
Discharge Instructions Date of Service Nov 10, 2016. Admission Reason for Admission: Told To Return By Dr Ama Pederson Discharge Discharge Diagnosis / Problem: epistaxis Discharge Goals Goal(s): Therapeutic intervention Activity Recommendations Activity Limitations: per Instructions/Follow-up section . Instructions / Follow-Up Instructions / Follow-Up ACTIVITY RECOMMENDATIONS: * Being up and around is good, but no strenuous activity, heavy lifting or physical exertion for one week. * Keep your head elevated 30 degrees when lying down or sleeping. * Do not blow your nose for 48 hours, sniff back instead. * Avoid hot showers. OVER THE COUNTER MEDICATIONS: * You may use Tylenol * Avoid aspirin or aspirin containing products, e.g. as they may increase bleeding. Hold coumadin until tomorrow, call Dr. Torres tomorrow if any bleeding to discuss coumadin SPECIAL CARE INSTRUCTIONS: * Expect to have bloody drainage from your nose and/or down your throat for one to three days. Change drip pad as needed. * Begin irrigating your nose with saline solution when packing starts to dissolve, at least six to ten times per day and sniff back to help remove old clots or crust. * You may experience nasal and facial congestion, pain and pressure, this is normal. * Please call with any significant and/or progressive pain, redness, swelling around the eyes, visual changes, fever of 101.5 degrees F, active bleeding or any problems or concerns. * If active bleeding occurs, spray the nose three times at one minute intervals with Afrin spray and call or cell phone: . If unable to reach the doctor, go to the nearest Emergency Department. Special Diet: * Avoid extremely hot fluids. FOLLOW UP VISIT: Follow-up Visit with Dr. Torres If not already scheduled, please call to schedule. Current Hospital Diet Patient's current hospital diet: Discharge Diet Recommended Diet: Regular Diet, Diabetes Type 1 Diet Procedures Procedures Performed: Endoscopic Cautery and Posterior packing right nares epistaxis Pending Studies Studies pending at discharge: no Medical Emergencies . Who to Call and When: Medical Emergencies: If at any time you feel your situation is an emergency, please call [phone] immediately. . Non-Emergent Contact Non-Emergency issues call your: Primary Care Provider . "Provider Documentation" section prepared by Akosua Torres. . VTE Core Measure Inpt VTE Proph given/why not?: Warfarin (Coumadin) [place] Drug Monitoring Program Search Results: no issues identified
--- NOTE | 2016-11-10 13:22 | Anesthesiology Progress Note ---
Anesthesia Post Op Note Date & Time Nov 10, 2016 at 13:22 Vital Signs Pain Intensity: 0 Vital Signs Past 12 Hours Date Time Temp Pulse Resp B/P (MAP) Pulse Ox O2 Delivery O2 Flow Rate FiO2 11/10/16 13:14 123/66 11/10/16 13:13 70 23 94 11/10/16 13:13 70 23 11/10/16 13:08 70 17 96 11/10/16 13:08 70 17 11/10/16 13:07 134/74 11/10/16 13:03 69 20 97 11/10/16 13:03 36.2 70 18 134/74 98 Room Air 11/10/16 13:03 69 20 11/10/16 10:02 60 16 117/59 98 11/10/16 08:45 71 17 128/67 97 11/10/16 06:42 36.5 81 18 107/66 98 Room Air Notes Mental Status: alert / awake / arousable, participated in evaluation Pt Amnestic to Procedure: Yes Nausea / Vomiting: adequately controlled Pain: adequately controlled Airway Patency, RR, SpO2: stable & adequate BP & HR: stable & adequate Hydration State: stable & adequate Anesthetic Complications: no major complications apparent
[2016-11-10 13:30] VITALS: BP_SYST 108; BP_SYST 119; BP_DIAS 66; BP_DIAS 70; PULSE 66; PULSE 68; TEMP 36.4; O2SAT 97; O2SAT 98
[2016-12-09] MEDS ORDERED: PSYL0.524 PO (15:28)
[2016-12-09] MEDS ORDERED: PENT400T2 PO (15:30)
[2016-12-09] MEDS ORDERED: GABA-112 PO (15:30)
[2016-12-11] MEDS ORDERED: OXYC-57 PO (12:01)
== END 2016-11-10 11:55 | disposition home or self-care (01) ==
LOC: C.EDB 06:37 → C.EDA 11:55
DX: R04.0 Epistaxis (principal); I71.4 Abdominal aortic aneurysm, without rupture; I35.0 Nonrheumatic aortic (valve) stenosis; E11.40 Type 2 diabetes mellitus with diabetic neuropathy, unspecified; K21.9 Gastro-esophageal reflux disease without esophagitis; E03.9 Hypothyroidism, unspecified; E78.5 Hyperlipidemia, unspecified; Z79.82 Long term (current) use of aspirin; Z79.4 Long term (current) use of insulin; Z79.01 Long term (current) use of anticoagulants; Z83.3 Family history of diabetes mellitus; Z82.49 Family history of ischemic heart disease and other diseases of the circulatory system

== ENCOUNTER 2016-12-11 08:03 | Day surgery (SDC) | payer OTHER, MEDICARE ==
[2016-12-09 15:34] VITALS: BMI 26.0
--- NOTE | 2016-12-09 16:21 | PAT Medication Instructions ---
Service Date Dec 09, 2016. Current Home Medication List Albuterol Sulf (Albuterol Sulfate), 1 VIAL INH Q4 PRN for Wheezing Albuterol Sulfate (Proair Respiclick), 2 PUFFS INH QID PRN for SOB/Wheezing Aspirin (Aspirin Ec), 81 MG PO QAM Atorvastatin (Lipitor), 40 MG PO QAM Carvedilol (Coreg), 12.5 MG PO BID Cholecalciferol (Vitamin D), 1,000 UNITS PO DAILY Cyanocobalamin (Vitamin B-12), 1,000 MCG PO QPM Digoxin (Digoxin), 0.125 MG PO 5XWK Docusate Sodium (Colace), 1-2 CAP PO QPM Gabapentin (Neurontin), 100 MG PO TID Glimepiride (Amaryl), 2 MG PO DAILY Home O2 Therapy (Oxygen), 2 LITERS NA PRN Hydrocortisone Valerate (Westcort 0.2% Oint), 1 APPLN TOP BID PRN for rash Insulin Aspart (Novolog), 1 DOSE SC SS Ipratropium [place] (Atrovent 0.02% Soln), 2.5 ML INH Q4 PRN for SOB/Wheezing Levothyroxine Sodium (Levothyroxine Sodium), 1 TAB PO QAM Lisinopril (Prinivil), 10 MG PO QAM Multivitamin (Multivitamin), 1 TAB PO QAM Nitroglycerin (Nitrostat), 0.4 MG UT PRN Omeprazole (Prilosec), 20 MG PO BID Pentoxifylline (Trental), 400 MG PO TID Pentoxifylline (Trental), 400 MG PO TID Psyllium (Metamucil), Unknown Dose PO UD PRN for Constipation Triamcinolone Acet (Triamcinolone Acetonide), 1 APPLN TOP BID PRN for RASH Warfarin Sod (Jantoven), 2.5 MG PO QPM Medication Instructions For Your Scheduled Surgery - Check with surgeon/element winding machine tender for instructions: Warfarin Sod (Jantoven), 2.5 MG PO QPM Aspirin (Aspirin Ec), 81 MG PO QAM Pentoxifylline (Trental), 400 MG PO TID Pentoxifylline (Trental), 400 MG PO TID - Hold the following medications 24 hours prior to surgery: Triamcinolone Acet (Triamcinolone Acetonide), 1 APPLN TOP BID PRN for RASH Hydrocortisone Valerate (Westcort 0.2% Oint), 1 APPLN TOP BID PRN for rash - Hold the following medications the morning of surgery: Psyllium (Metamucil), Unknown Dose PO UD PRN for Constipation Multivitamin (Multivitamin), 1 TAB PO QAM Lisinopril (Prinivil), 10 MG PO QAM Glimepiride (Amaryl), 2 MG PO DAILY Cholecalciferol (Vitamin D), 1,000 UNITS PO DAILY Insulin Aspart (Novolog), 1 DOSE SC SS - Take the following medications the morning of surgery with a sip of water: Omeprazole (Prilosec), 20 MG PO BID Levothyroxine Sodium (Levothyroxine Sodium), 1 TAB PO QAM Ipratropium [place] (Atrovent 0.02% Soln), 2.5 ML INH Q4 PRN for SOB/Wheezing ( if needed) Gabapentin (Neurontin), 100 MG PO TID Digoxin (Digoxin), 0.125 MG PO 5XWK Carvedilol (Coreg), 12.5 MG PO BID Atorvastatin (Lipitor), 40 MG PO QAM Albuterol Sulf (Albuterol Sulfate), 1 VIAL INH Q4 PRN for Wheezing (if needed) Albuterol Sulfate (Proair Respiclick), 2 PUFFS INH QID PRN for SOB/Wheezing (if needed) Nitroglycerin (Nitrostat), 0.4 MG UT PRN - Take the following medications as scheduled the night before surgery: Psyllium (Metamucil), Unknown Dose PO UD PRN for Constipation (if needed) Omeprazole (Prilosec), 20 MG PO BID Ipratropium [place] (Atrovent 0.02% Soln), 2.5 ML INH Q4 PRN for SOB/Wheezing ( if needed) Home O2 Therapy (Oxygen), 2 LITERS NA PRN (if needed) Gabapentin (Neurontin), 100 MG PO TID Docusate Sodium (Colace), 1-2 CAP PO QPM Cyanocobalamin (Vitamin B-12), 1,000 MCG PO QPM Carvedilol (Coreg), 12.5 MG PO BID Albuterol Sulf (Albuterol Sulfate), 1 VIAL INH Q4 PRN for Wheezing (if needed) Albuterol Sulfate (Proair Respiclick), 2 PUFFS INH QID PRN for SOB/Wheezing (if needed) Insulin Aspart (Novolog), 1 DOSE SC SS If you have any questions please call us at [phone] or [phone] or [phone]
[2016-12-09 16:35] LABS: BASO % 0.9 %; BASO ABS # 0.06 K/uL (0-0.2); COMPLETE YES; IG% 0.4 %; LYMPH % 20.6 %; LYMPH ABS # 1.38 K/uL (1.2-3.4); MEAN CELL VOLUME 90.3 fL (80-100); MEAN CORPUSCULAR HEMOGLOBIN 30.2 pg (25-34); MEAN CORPUSCULAR HGB CONC 33.4 g/dl (32-36); MONO % 9.1 %; PLATELET COUNT 122 K/uL (130-400); RED BLOOD COUNT 4.21 M/uL (4.7-6.1); WHITE BLOOD COUNT 6.71 K/uL (4.8-10.8)
--- NOTE | 2016-12-10 08:07 | History and Physical ---
History & Physical Date Dec 10, 2016. Chief Complaint nose bleeds History of Present Illness The patient is a 85 year old male with complaints of persistent epistaxis, s/p endo cautery, INR 3.3 Wednesday, septal dev. 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 PT NOT SURE, 12/09/16) Doxycycline (Verified Allergy, Unknown, GI UPSET, 12/09/16) Penicillins (Verified Allergy, Unknown, ITCHING, 11/10/16) Quinolones (Verified Allergy, Unknown, ? - pt not sure, 12/09/16) Sulfa Antibiotics (Verified Allergy, Unknown, ? pt not sure, 12/09/16) Tetracycline (Verified Allergy, Unknown, ? pt not sure, 12/09/16) Home Medications Scheduled Aspirin (Aspirin Ec), 81 MG PO QAM Atorvastatin (Lipitor), 40 MG PO QAM Carvedilol (Coreg), 12.5 MG PO BID Cholecalciferol (Vitamin D), 1,000 UNITS PO DAILY Cyanocobalamin (Vitamin B-12), 1,000 MCG PO QPM Digoxin (Digoxin), 0.125 MG PO 5XWK Docusate Sodium (Colace), 1-2 CAP PO QPM Gabapentin (Neurontin), 100 MG PO TID Glimepiride (Amaryl), 2 MG PO DAILY Home O2 Therapy (Oxygen), 2 LITERS NA PRN Insulin Aspart (Novolog), 1 DOSE SC SS Levothyroxine Sodium (Levothyroxine Sodium), 1 TAB PO QAM Lisinopril (Prinivil), 10 MG PO QAM Multivitamin (Multivitamin), 1 TAB PO QAM Nitroglycerin (Nitrostat), 0.4 MG UT PRN Omeprazole (Prilosec), 20 MG PO BID Pentoxifylline (Trental), 400 MG PO TID Pentoxifylline (Trental), 400 MG PO TID Warfarin Sod (Jantoven), 2.5 MG PO QPM Scheduled PRN Albuterol Sulf (Albuterol Sulfate), 1 VIAL INH Q4 PRN for Wheezing Albuterol Sulfate (Proair Respiclick), 2 PUFFS INH QID PRN for SOB/Wheezing Hydrocortisone Valerate (Westcort 0.2% Oint), 1 APPLN TOP BID PRN for rash Ipratropium [place] (Atrovent 0.02% Soln), 2.5 ML INH Q4 PRN for SOB/Wheezing Psyllium (Metamucil), Unknown Dose PO UD PRN for Constipation Triamcinolone Acet (Triamcinolone Acetonide), 1 APPLN TOP BID PRN for RASH Physical Examination Skin: warm/dry, no rash Eyes: normal inspection, EOMI, sclerae normal ENT: + pertinent finding (septal dev. to right with bleeding, packed with gelfoam) Head: normocephalic, atraumatic Neck: supple, no adenopathy, trachea midline Respiratory/Chest: lungs clear, normal breath sounds, no respiratory distress Cardiovascular: + irregularly irregular Abdomen / GI: normal bowel sounds, non tender Back: normal inspection Extremities: normal inspection, normal range of motion Diagnosis epistaxis, septal dev. ASA Classification: ASA Class III Plan of Treatment septoplasty to get access, pack nose with floseal
[~2016-12-11] VITALS: Ht 162.6 cm; Wt 70.6 kg
[~2016-12-11 08:03] MED LIST changes: +CEFAZOLIN 1000MG/55 ML D5W IV SCH; +LACTATED RINGER'S 1000ML 1,000 ML IV SCH; -NVLRPUC SC; -POLY335019 PO; +PSYL0.524 PO; +TETRACAINE 4% TOPICAL SOLUTION TOP ONE
[2016-12-11 08:56] VITALS: BP 140/68; PULSE 67; TEMP 36.5; O2SAT 98; Ht 162.6 cm; Wt 70.6 kg
[2016-12-11] MEDS ORDERED: EpHEDrine SULFATE INJ 50 MG/ML AMP IV PRN (09:15)
[2016-12-11] MEDS ORDERED: ONDANSETRON INJ 2 MG/ML 2 ML VIAL IV PRN (09:15)
[2016-12-11] MEDS ORDERED: ATROPINE SULFATE 0.1 MG/ML 5ML SYR IV PRN (09:15)
[2016-12-11] MEDS ORDERED: FENTANYL CITRATE INJ 50 MCG/1 ML 2 ML VIAL IV PRN (09:15)
[2016-12-11 09:25] LABS: INR 1.2 (0.9-1.1); PARTIAL THROMBOPLASTIN RATIO 1.1; PROTHROMBIN TIME (PATIENT) 13.4 SECONDS (9.0-12.0)
[2016-12-11] MEDS ORDERED: MIDAZOLAM HCL 1 MG/ML 2ML VIAL ONE (10:05)
[2016-12-11] MEDS ORDERED: MUPIROCIN 2% OINT 22 GM TUBE ONE (10:41)
[2016-12-11] MEDS ORDERED: LIDO 2%/EPINEPHRINE 1:100000 20 ML VIAL INFIL ONE (10:41)
[2016-12-11] MEDS ORDERED: LIDOCAINE 4% INH SOLN 4 ML BTL ONE (10:42)
[2016-12-11] MEDS ORDERED: EpINEphrine HCL INJ 1 MG/ML 5ML SYRINGE ONE (10:42)
[2016-12-11] MEDS ORDERED: GELATIN SPONGE 12-7MM ONE (10:42)
[2016-12-11] MEDS ORDERED: SODIUM CHLORIDE 0.9% 1000ML 1,000 ML IV SCH (10:51)
--- NOTE | 2016-12-11 10:52 | History & Physical Bridge Note ---
H&P Re-Evaluation Bridge Note: I have examined the patient, reviewed the History & Physical and in the interval since the performance of the History & Physical I have noted the following changes of clinical significance: No changes noted
[2016-12-11] MEDS ORDERED: EpINEphrine INJ 1MG/ML AMP 1 MG/ML AMP ONE (10:53)
[2016-12-11] MEDS ORDERED: OXYCODONE/ACETAMINOPHEN 5-325 TAB PO PRN ×2 (11:00)
[2016-12-11] MEDS ORDERED: NURSING VERBAL MED ORDER ONE (11:00)
[2016-12-11] MEDS ORDERED: CLINDAMYCIN 600 MG/54 ML D5W IV ONE (11:00)
[2016-12-11] MEDS ORDERED: FLOSEAL HEMOSTATIC MATRIX 10ML TOP ONE (11:30)
[2016-12-11] MEDS ORDERED: GELATIN SPONGE SZ 100 ONE (11:42)
--- NOTE | 2016-12-11 12:00 | [facility] Operative Report ---
Operative Report Operative Date Dec 11, 2016. 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 Septal bone and cartilage Drains none Anesthesia local with sedation Complication(s) None Disposition Recovery Room / PACU Indications 85-year-old gentleman with recurrent episodes of epistaxis from the right nares due to septal deviation and due to Coumadin with INR of 3.3 this past Wednesday Description of Procedure The patient was brought to the operating room placed in the supine position and sedated. Local anesthesia by topical tetracaine on cottonoids and also injection of 2% Xylocaine with 1-100,000 strength epinephrine was used. The right hemitransfixion incision was made and the mucoperichondrium was elevated off the right side of the septum the cartilage inferiorly from the vomer maxillary crest to elevate superior inferior tunnels and then to elevate bilateral posterior tunnels the cartilage was inferiorly from the vomer maxillary crest and posteriorly from the perpendicular plate of the ethmoid. The bony and cartilaginous spur projecting to the right inferiorly and posteriorly were removed using the [place]-Walter rongeurs, Nellie forceps, caudal dissector, and bayonet forceps. The septum was closed using a continuous mattress suture of 40 plain gut. The right posterior packing was started with 2 large strips of Gelfoam posteriorly and then 10 mL of FloSeal followed by another strip of Gelfoam anteriorly. The patient tolerated procedure well and was taken to the recovery area in satisfactory condition. I attest to the content of the Intraoperative Record and any orders documented therein. Any exceptions are noted below.
[2016-12-11] MEDS ORDERED: OXYC-57 PO (12:01)
--- NOTE | 2016-12-11 12:02 | Discharge Instructions-SurgCtr ---
Discharge Instructions Date of Service Dec 11, 2016. Visit Reason for Visit: Septal Deviation, Epitaxis Discharge Discharge Diagnosis / Problem: same Discharge Goals Goal(s): Therapeutic intervention Activity Recommendations Activity Limitations: per Instructions/Follow-up section Anesthesia . Post Anesthesia Instructions: If you have had General Anesthesia or IV Sedation: * Do not drive today. * Resume driving when surgeon permits. * Do not make important decisions or sign legal documents today. * Call surgeon for: 1. Temperature elevations greater than 101 degrees F. 2. Uncontrollable pain. 3. Excessive bleeding. 4. Persistent nausea and vomiting. 5. Medication intolerance (nausea, vomiting or rash). * For nausea and vomiting use only clear liquids such as: tea, soda, bouillon until nausea subsides, then gradually increase diet as tolerated. * If you have any concerns or questions, call your surgeon's office. If physician is unavailable and it is an emergency, call 911 or go to the nearest emergency room. . Instructions / Follow-Up Instructions / Follow-Up ACTIVITY RECOMMENDATIONS: * Being up and around is good, but no strenuous activity, heavy lifting or physical exertion for one week. * Keep your head elevated 30 degrees when lying down or sleeping. * Do not blow your nose for 48 hours, sniff back instead. * Avoid hot showers. OVER THE COUNTER MEDICATIONS: * You may use Tylenol * Avoid aspirin or aspirin containing products, e.g. as they may increase bleeding. SPECIAL CARE INSTRUCTIONS: * Expect to have bloody drainage from your nose and/or down your throat for one to three days. Change drip pad as needed. * Begin irrigating your nose with saline solution today, at least six to ten times per day and sniff back to help remove old clots or crust. * You may experience nasal and facial congestion, pain and pressure, this is normal. * Please call with any significant and/or progressive pain, redness, swelling around the eyes, visual changes, fever of 101.5 degrees F, active bleeding or any problems or concerns. * If active bleeding occurs, spray the nose three times at one minute intervals with Afrin spray and call or cell phone: . If unable to reach the doctor, go to the nearest Emergency Department. Special Diet: * Avoid extremely hot fluids. FOLLOW UP VISIT: Follow-up Visit with Dr. Torres If not already scheduled, please call to schedule. Diet Recommendations Home Diet: resume previous diet Procedures Procedures Performed: Septoplasty and posterior packing Pending Studies Studies pending at discharge: no Medical Emergencies . Who to Call and When: Medical Emergencies: If at any time you feel your situation is an emergency, please call 911 immediately. . Non-Emergent Contact Non-Emergency issues call your: Primary Care Provider . . "Provider Documentation" section prepared by Akosua Torres. . [place] Drug Monitoring Program Search Results: no issues identified
--- NOTE | 2016-12-11 12:18 | Anesthesiology Progress Note ---
Anesthesia Post Op Note Date & Time Dec 11, 2016 at 12:18 Vital Signs Pain Intensity: 0 Vital Signs Past 12 Hours Date Time Temp Pulse Resp B/P (MAP) Pulse Ox O2 Delivery O2 Flow Rate FiO2 12/11/16 11:57 36.2 74 18 143/77 97 Room Air 12/11/16 08:56 36.5 67 22 140/68 (92) 98 Room Air Notes Mental Status: alert / awake / arousable, participated in evaluation Pt Amnestic to Procedure: Yes Nausea / Vomiting: adequately controlled Pain: adequately controlled Airway Patency, RR, SpO2: stable & adequate BP & HR: stable & adequate Hydration State: stable & adequate Anesthetic Complications: no major complications apparent
[2016-12-11 12:33] VITALS: BP 156/73; PULSE 64; TEMP 36.5; O2SAT 100
[2016-12-11 13:00] VITALS: BP 171/66; PULSE 66; O2SAT 100
[2016-12-11 13:30] VITALS: BP 168/66; PULSE 66; TEMP 36.7; O2SAT 100
== END 2016-12-11 13:40 | disposition home or self-care (01) ==
LOC: C.ACU 08:03
PROVIDERS: ATTEND Otolaryngology
DX: J34.2 Deviated nasal septum (principal); R04.0 Epistaxis; I71.4 Abdominal aortic aneurysm, without rupture; I35.0 Nonrheumatic aortic (valve) stenosis; I48.91 Unspecified atrial fibrillation; I10 Essential (primary) hypertension; E78.5 Hyperlipidemia, unspecified; E11.40 Type 2 diabetes mellitus with diabetic neuropathy, unspecified; K21.9 Gastro-esophageal reflux disease without esophagitis; E03.9 Hypothyroidism, unspecified; Z95.1 Presence of aortocoronary bypass graft; Z79.01 Long term (current) use of anticoagulants; Z79.82 Long term (current) use of aspirin; Z79.899 Other long term (current) drug therapy; Z99.81 Dependence on supplemental oxygen

== ENCOUNTER → 2017-03-25 | Day surgery (SDC) | payer OTHER, MEDICARE ==
--- NOTE | 2017-03-24 16:12 | History and Physical: Surg Cnt ---
History & Physical Date Mar 24, 2017. 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 PT NOT SURE, 12/09/16) Doxycycline (Verified Allergy, Unknown, GI UPSET, 12/09/16) Penicillins (Verified Allergy, Unknown, ITCHING, 11/10/16) Quinolones (Verified Allergy, Unknown, ? - pt not sure, 12/09/16) Sulfa Antibiotics (Verified Allergy, Unknown, ? pt not sure, 12/09/16) Tetracycline (Verified Allergy, Unknown, ? pt not sure, 12/09/16) Home Medications Scheduled Aspirin (Aspirin Ec), 81 MG PO QAM Atorvastatin (Lipitor), 40 MG PO QAM Carvedilol (Coreg), 12.5 MG PO BID Cholecalciferol (Vitamin D), 1,000 UNITS PO DAILY Cyanocobalamin (Vitamin B-12), 1,000 MCG PO QPM Digoxin (Digoxin), 0.125 MG PO 5XWK Docusate Sodium (Colace), 1-2 CAP PO QPM Gabapentin (Neurontin), 100 MG PO TID Glimepiride (Amaryl), 2 MG PO DAILY Home O2 Therapy (Oxygen), 2 LITERS NA PRN Insulin Aspart (Novolog), 1 DOSE SC SS Levothyroxine Sodium (Levothyroxine Sodium), 1 TAB PO QAM Lisinopril (Prinivil), 10 MG PO QAM Multivitamin (Multivitamin), 1 TAB PO QAM Nitroglycerin (Nitrostat), 0.4 MG UT PRN Omeprazole (Prilosec), 20 MG PO BID Pentoxifylline (Trental), 400 MG PO TID Pentoxifylline (Trental), 400 MG PO TID Warfarin Sod (Jantoven), 2.5 MG PO QPM Scheduled PRN Albuterol Sulf (Albuterol Sulfate), 1 VIAL INH Q4 PRN for Wheezing Albuterol Sulfate (Proair Respiclick), 2 PUFFS INH QID PRN for SOB/Wheezing Hydrocortisone Valerate (Westcort 0.2% Oint), 1 APPLN TOP BID PRN for rash Ipratropium [place] (Atrovent 0.02% Soln), 2.5 ML INH Q4 PRN for SOB/Wheezing Oxycodone/Acetaminophen 5MG/325MG (Percocet 5MG/325MG), 1-2 TABLETS PO Q4H PRN for Pain Psyllium (Metamucil), Unknown Dose PO UD PRN for Constipation Triamcinolone Acet (Triamcinolone Acetonide), 1 APPLN TOP BID PRN for RASH Physical Examination Skin: warm/dry, no rash Eyes: normal inspection, EOMI, sclerae normal ENT: normal ENT inspection, pharynx normal Head: normocephalic, atraumatic Neck: supple, no adenopathy, trachea midline Respiratory/Chest: lungs clear, normal breath sounds, no respiratory distress Cardiovascular: regular rate, rhythm, no edema, no murmur Abdomen / GI: normal bowel sounds, non tender Back: normal inspection Extremities: normal inspection, normal range of motion Neurologic/Psych: no motor/sensory deficits, alert, normal reflexes, oriented x 3 Diagnosis epistaxis, adhesion right septum Plan of Treatment endoscopic cautery, lysis adhesions
[~2017-03-25] VITALS: Ht 162.6 cm; Wt 70.0 kg
[~2017-03-25] MED LIST changes: +BACITRACIN OINT 15 GM TUBE ONE; -CEFAZOLIN 1000MG/55 ML D5W IV SCH; +EpINEphrine INJ 1MG/ML AMP 1 MG/ML AMP ONE; +GELATIN SPONGE 12-7MM ONE; -LACTATED RINGER'S 1000ML 1,000 ML IV SCH; +LIDO 2%/EPINEPHRINE 1:100000 20 ML VIAL INFIL ONE; +LIDOCAINE 4% MPF SOAK 5 ML = 1 DOSE TOP ONE; +OXYC-57 PO; +OXYCODONE/ACETAMINOPHEN 5-325 TAB PO PRN; +SODIUM CHLORIDE 0.9% 1000ML 1,000 ML IV SCH; -TETRACAINE 4% TOPICAL SOLUTION TOP ONE; +TETRACAINE 4% TOPICAL SOLUTION TOP SCH
--- NOTE | 2017-03-25 09:53 | History & Physical Bridge Note ---
H&P Re-Evaluation Bridge Note: I have examined the patient, reviewed the History & Physical and in the interval since the performance of the History & Physical I have noted the following changes of clinical significance: ASA class 3, No changes noted
[2017-03-25 10:29] VITALS: Ht 162.6 cm; Wt 70.0 kg
--- NOTE | 2017-03-25 10:57 | Discharge Instructions-SurgCtr ---
Discharge Instructions Date of Service Mar 25, 2017. Visit Reason for Visit: Epistaxis Discharge Discharge Diagnosis / Problem: same Discharge Goals Goal(s): Therapeutic intervention Medications Stopped Medications Name(s): Coumadin- held last evening. ASA Activity Recommendations Activity Limitations: resume your previous activity Anesthesia . Post Anesthesia Instructions: If you have had General Anesthesia or IV Sedation: * Do not drive today. * Resume driving when surgeon permits. * Do not make important decisions or sign legal documents today. * Call surgeon for: 1. Temperature elevations greater than 101 degrees F. 2. Uncontrollable pain. 3. Excessive bleeding. 4. Persistent nausea and vomiting. 5. Medication intolerance (nausea, vomiting or rash). * For nausea and vomiting use only clear liquids such as: tea, soda, bouillon until nausea subsides, then gradually increase diet as tolerated. * If you have any concerns or questions, call your surgeon's office. If physician is unavailable and it is an emergency, call 911 or go to the nearest emergency room. . Instructions / Follow-Up Instructions / Follow-Up ACTIVITY RECOMMENDATIONS: * Being up and around is good, but no strenuous activity, heavy lifting or physical exertion for one week. * Keep your head elevated 30 degrees when lying down or sleeping. * Do not blow your nose for 48 hours, sniff back instead. * Avoid hot showers. OVER THE COUNTER MEDICATIONS: * You may use Tylenol * Avoid aspirin or aspirin containing products, e.g. as they may increase bleeding. SPECIAL CARE INSTRUCTIONS: * Expect to have bloody drainage from your nose and/or down your throat for one to three days. Change drip pad as needed. * Begin irrigating your nose with saline solution today, at least six to ten times per day and sniff back to help remove old clots or crust. * You may experience nasal and facial congestion, pain and pressure, this is normal. * Please call with any significant and/or progressive pain, redness, swelling around the eyes, visual changes, fever of 101.5 degrees F, active bleeding or any problems or concerns. * If active bleeding occurs, spray the nose three times at one minute intervals with Afrin spray and call or cell phone: . If unable to reach the doctor, go to the nearest Emergency Department. Special Diet: * Avoid extremely hot fluids. FOLLOW UP VISIT: Follow-up Visit with Dr. Torres If not already scheduled, please call to schedule. Diet Recommendations Home Diet: no limitations Pending Studies Studies pending at discharge: no Medical Emergencies . Who to Call and When: Medical Emergencies: If at any time you feel your situation is an emergency, please call 911 immediately. . Non-Emergent Contact Non-Emergency issues call your: Primary Care Provider . . "Provider Documentation" section prepared by Akosua Torrse. . [place] Drug Monitoring Program Search Results: no issues identified
[2017-03-25 13:25] VITALS: BP 183/91; PULSE 62; TEMP 36.7; O2SAT 98
--- NOTE | 2017-03-25 13:47 | OPERATIVE REPORT ---
DATE OF OPERATION: 03/25/2017 PREOPERATIVE DIAGNOSES: Posterior epistaxis and adhesions, right side of septum. POSTOPERATIVE DIAGNOSES: Same. PROCEDURE: Endoscopic cautery plus endoscopic lysis of adhesions. SURGEON: Dr. Torres. ANESTHESIA: Strict local. COMPLICATIONS: None. BLOOD LOSS: 5 mL. HISTORY OF PRESENT ILLNESS: An 86-year-old gentleman with recurrent epistaxis, found to have an adhesion on the right side of the septum that was bleeding. DESCRIPTION OF PROCEDURE: The patient was brought to the operating room and placed in the supine position. Topical anesthesia was obtained using 4% tetracaine on cottonoid pledgets. Injection of 2% Xylocaine with 1:100,000 strength epinephrine was also used. The adhesion on the right side was divided using the sickle knife and then the granulation tissue there was cauterized using suction cautery. The bleeding site was at the right mid septum posteriorly and this was cauterized using the suction cautery with good control. Gelfoam packing was placed. The patient tolerated procedure well and was taken to the recovery area in satisfactory condition. I attest to the content of the Intraoperative Record and any orders documented therein. Any exception s are noted below.
== END | disposition home or self-care (01) ==
LOC: X.SURG 10:05
PROVIDERS: ATTEND Otolaryngology
DX: R04.0 Epistaxis (principal); J34.89 Other specified disorders of nose and nasal sinuses; I71.4 Abdominal aortic aneurysm, without rupture; I35.0 Nonrheumatic aortic (valve) stenosis; I48.91 Unspecified atrial fibrillation; I10 Essential (primary) hypertension; E11.42 Type 2 diabetes mellitus with diabetic polyneuropathy; E78.5 Hyperlipidemia, unspecified; K21.9 Gastro-esophageal reflux disease without esophagitis; E03.9 Hypothyroidism, unspecified; Z95.1 Presence of aortocoronary bypass graft; Z79.01 Long term (current) use of anticoagulants; Z79.4 Long term (current) use of insulin; Z79.82 Long term (current) use of aspirin; Z79.899 Other long term (current) drug therapy

== ENCOUNTER 2017-06-24 19:03 | Emergency (ER) | payer OTHER, MEDICARE ==
[~2017-06-24] VITALS: Ht 165.1 cm; Wt 71.8 kg
[~2017-06-24 19:03] MED LIST changes: -BACITRACIN OINT 15 GM TUBE ONE; -EpINEphrine INJ 1MG/ML AMP 1 MG/ML AMP ONE; -GELATIN SPONGE 12-7MM ONE; -LIDO 2%/EPINEPHRINE 1:100000 20 ML VIAL INFIL ONE; -LIDOCAINE 4% MPF SOAK 5 ML = 1 DOSE TOP ONE; -OXYC-57 PO; -OXYCODONE/ACETAMINOPHEN 5-325 TAB PO PRN; -SODIUM CHLORIDE 0.9% 1000ML 1,000 ML IV SCH; -TETRACAINE 4% TOPICAL SOLUTION TOP SCH
[2017-06-24 19:32] VITALS: TEMP 36.7; Ht 165.1 cm; Wt 71.8 kg
[2017-06-24] MEDS ORDERED: OXYMETAZOLINE HCL 0.05% NA SPR 15 ML BTL STA (19:43)
[2017-06-24] MEDS ORDERED: SILVER NITR/POTASSIUM NITRATE APPLICATOR ONE ×2 (20:23→20:49)
--- NOTE | 2017-06-24 22:35 | EMERGENCY ROOM VISIT NOTE ---
History First contact with patient: 19:37 Chief Complaint: NOSE BLEED (MINOR) Stated Complaint: NOSE BLEED- COUMADIN/CARDIAC PT History of Present Illness The patient is a 86 year old male who presents to the Emergency Room with complaints of nosebleed that started about 1-1/2 hours ago. He states it is coming out of his right nostril. The patient forgot to apply a nose clamp. He just put Kleenex in his right nostril. Patient is on Coumadin. The patient states that his last INR on June 15 was 2.0. The patient states that he has had multiple nosebleeds in the past and had surgery on his nose as well. He is followed by Dr. Torres. The patient denies any trauma to the nose prior to the onset of a nosebleed this evening. Review of Systems 10 system review was performed and was negative unless stated otherwise history of present illness. 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 Family History Diabetes mellitus Heart disease Hypertension Social History Smoking Status: Never Smoker Alcohol Use: none Drug Use: none Marital Status: Housing Status: lives with family Occupation Status: retired Current/Historical Medications Scheduled Aspirin (Aspirin Ec), 81 MG PO QAM Atorvastatin (Lipitor), 40 MG PO QAM Carvedilol (Coreg), 12.5 MG PO BID Cholecalciferol (Vitamin D), 1,000 UNITS PO DAILY Cyanocobalamin (Vitamin B-12), 1,000 MCG PO QPM Digoxin (Digoxin), 0.125 MG PO 5XWK Docusate Sodium (Colace), 1-2 CAP PO QPM Gabapentin (Neurontin), 100 MG PO TID Glimepiride (Amaryl), 2 MG PO DAILY Home O2 Therapy (Oxygen), 2 LITERS NA PRN Insulin Aspart (Novolog), 1 DOSE SC SS Levothyroxine Sodium (Levothyroxine Sodium), 1 TAB PO QAM Lisinopril (Prinivil), 10 MG PO QAM Multivitamin (Multivitamin), 1 TAB PO QAM Nitroglycerin (Nitrostat), 0.4 MG UT PRN Omeprazole (Prilosec), 20 MG PO BID Pentoxifylline (Trental), 400 MG PO TID Pentoxifylline (Trental), 400 MG PO TID Warfarin Sod (Jantoven), 2.5 MG PO QPM Scheduled PRN Albuterol Sulf (Albuterol Sulfate), 1 VIAL INH Q4 PRN for Wheezing Albuterol Sulfate (Proair Respiclick), 2 PUFFS INH QID PRN for SOB/Wheezing Hydrocortisone Valerate (Westcort 0.2% Oint), 1 APPLN TOP BID PRN for rash Ipratropium [place] (Atrovent 0.02% Soln), 2.5 ML INH Q4 PRN for SOB/Wheezing Psyllium (Metamucil), Unknown Dose PO UD PRN for Constipation Triamcinolone Acet (Triamcinolone Acetonide), 1 APPLN TOP BID PRN for RASH Physical Exam Vital Signs Date Time Temp Pulse Resp B/P (MAP) Pulse Ox O2 Delivery O2 Flow Rate FiO2 06/24/17 21:37 70 18 159/76 98 Room Air 06/24/17 19:32 36.7 73 18 142/76 97 Room Air Physical Exam PHYSICAL EXAM: Vital Signs were reviewed: Reviewed Nurse's notes and agree. . GENERAL: 86-year-old male appears in no acute distress. He has tissue in his right nostril. MENTAL STATUS: Alert, oriented, coherent. NOSE: Left nostril is clear. Right nostril with blood noted. Initially unable to visualize area of bleeding. Medical Decision & Procedures Laboratory Results Test 06/24/17 19:49 Bedside Prothrombin Time INR 2.0 (0.9-1.1) Medications Administered Medications (Trade) Dose Ordered Sig/Louise Route Start Time Stop Time Status Last Admin Dose Admin Oxymetazoline HCl (Afrin 0.05% Nasal [place]) 1 sprays NOW STAT NA 06/24/17 19:43 06/24/17 19:44 DC 06/24/17 19:50 1 SPRAYS Silver Nitrate/ Potassium Nitrate (Silver Nitrate Applicators) 2 appl STK-MED ONCE .ROUTE 06/24/17 20:23 06/24/17 20:24 DC 06/24/17 20:23 2 APPL Silver Nitrate/ Potassium Nitrate (Silver Nitrate Applicators) 2 appl STK-MED ONCE .ROUTE 06/24/17 20:49 06/24/17 20:50 DC 06/24/17 20:49 2 APPL ED Course The patient was evaluated.The nostril was cleaned and Afrin and a nasal clamp was applied. [id number] INR was 2.0. The patient is very valuable 80. It appeared that the patient was bleeding from the inferior aspect of the nasal passage. This was cauterized with silver nitrate. A clamp was applied to his nose. After 15 minutes the clamp was removed and I reevaluated the patient's nose. There was still some bleeding noted posterior to the area where I had cauterized prior. Dr. Garcia came to evaluate the patient and agreed additional cautery was necessary. This was performed by Dr. Garcia with success. The patient ambulated around the room and hallway without any recurrent bleeding. The patient was discharged home in stable condition. Medical Decision Since the area of bleeding was visualized cautery was performed. I do not feel that a Rhino Rocket was indicated [place] Drug Monitoring Program Search Results: patient reviewed within database Medication Reconcilliation Current Medication List: was personally reviewed by me Blood Pressure Screening Patient's blood pressure: Elevated blood pressure Blood pressure disposition: Elevated BP felt to be situational Impression Primary Impression: Anterior epistaxis Departure Information Dispostion Home / Self-Care Condition GOOD Referrals Yusra Melissa M.D. (PCP) Forms HOME CARE DOCUMENTATION FORM, IMPORTANT VISIT INFORMATION, WORK / SCHOOL INSTRUCTIONS Patient Instructions My [employer] Additional Instructions Do not blow your nose for the next 24 hours. Do not put anything in your notes for the next 24 hours. If bleeding recurs, apply nasal clamp for 15 minutes. If it is still bleeding, return to ER.
[2017-06-24 22:40] VITALS: BP 159/86; PULSE 70; O2SAT 98
== END 2017-06-24 22:41 | disposition home or self-care (01) ==
LOC: C.EDB 19:05 → C.EDD 22:41
DX: R04.0 Epistaxis (principal); I71.4 Abdominal aortic aneurysm, without rupture; I35.0 Nonrheumatic aortic (valve) stenosis; I48.91 Unspecified atrial fibrillation; I10 Essential (primary) hypertension; E11.42 Type 2 diabetes mellitus with diabetic polyneuropathy; K21.9 Gastro-esophageal reflux disease without esophagitis; E78.5 Hyperlipidemia, unspecified; E03.9 Hypothyroidism, unspecified; Z79.82 Long term (current) use of aspirin; Z79.4 Long term (current) use of insulin; Z79.01 Long term (current) use of anticoagulants; Z83.3 Family history of diabetes mellitus; Z82.49 Family history of ischemic heart disease and other diseases of the circulatory system